=== PATIENT | female | born 1980 | race Caucasian/White ===

== ENCOUNTER 2017-09-20 17:57 | Emergency (ER) | payer SELFPAY ==
--- NOTE | 2017-09-20 18:52 | ER Document Report ---
ED Medical Screen (RME) - General Chief Complaint: Vertigo Stated Complaint: LEG PAIN, DIZZY Time Seen by Provider: 09/20/17 18:39 Notes: RME DISCLOSURE I have seen this patient as part of a Rapid Medical Evaluation and, if applicable, placed any initially appropriate orders. The patient will be seen and fully evaluated, including a full history and physical exam, by a provider ( in Main ED or Fast Track) when a room becomes available. 37-year-old female here with complaints of lightheadedness/SOB that started yesterday evening with associated episode of vomiting. Lightheadedness shortness of breath persisted throughout the day and worsened however she did not syncopized. She then started to have right leg severe pain numbness and tingling but no swelling. She has not had any chest pain tightness discomfort. She has no prior history of DVT/PE but has a strong family history in the father who has had multiple blood clots. She does also take exogenous estrogen since she is status post hysterectomy. She was sent here today from [facility] who was concerned. They performed orthostatic vital signs there and she had hypoxia to 90%. TRAVEL OUTSIDE OF THE [place] IN LAST 30 DAYS: No - Related Data Allergies/Adverse Reactions: Penicillins Allergy (Severe, Verified 09/20/17 18:00) Hives tegaderm Adverse Reaction (Uncoded 08/29/13 10:45) arm swelling Past Medical History Pulmonary Medical History: Reports: Hx Asthma - hx of no current meds Neurological Medical History: Reports: Hx Migraine Endocrine Medical History: Reports: Hx Hypothyroidism Malignancy Medical History: Reports: Hx Breast Cancer - chemo GI Medical History: Reports: Hx Gastroesophageal Reflux Disease Skin Medical History: Reports Hx Eczema Psychiatric Medical History: Reports: Hx Depression Past Surgical History: Reports: Hx Appendectomy, Hx Section - 3, Hx Hysterectomy, Hx Oral Surgery, Hx Tonsillectomy, Hx Tubal Ligation - x2 - Immunizations Immunizations up to date: No Hx Diphtheria, Pertussis, Tetanus Vaccination: No Physical Exam - Vital signs Vitals: Temp Pulse Resp BP Pulse Ox 97.5 F 95 20 125/88 H 99 09/20/17 18:04 09/20/17 18:04 09/20/17 18:04 09/20/17 18:04 09/20/17 18:04 Course - Vital Signs Vital signs: Temp Pulse Resp BP Pulse Ox 97.5 F 95 20 125/88 H 99 09/20/17 18:04 09/20/17 18:04 09/20/17 18:04 09/20/17 18:04 09/20/17 18:04
[2017-09-20 19:46] LABS: ABSOLUTE LYMPHOCYTES (AUTO) 1.9 10^3/uL (0.5-4.7); ABSOLUTE MONOCYTES (AUTO) 0.5 10^3/uL (0.1-1.4); ABSOLUTE NEUT (AUTO) 5.7 10^3/uL (1.7-8.2); BASOPHILS % (AUTO) 0.4 % (0-2); EOSINOPHILS % (AUTO) 0.5 % (0-6); HEMATOCRIT 42.9 % (36.0-47.0); HEMOGLOBIN 14.9 g/dL (12.0-15.5); LYMPHOCYTES % (AUTO) 23.8 % (13-45); MEAN CORPUSCULAR HEMOGLOBIN 32.7 pg (27.0-33.4); MEAN CORPUSCULAR HGB CONC 34.8 g/dL (32.0-36.0); MEAN CORPUSCULAR VOLUME 94 fl (80-97); MONOCYTES % (AUTO) 5.5 % (3-13); PLATELET COUNT 210 10^3/uL (150-450); RED BLOOD COUNT 4.57 10^6/uL (3.72-5.28); RED CELL DISTRIBUTION WIDTH 12.6 % (11.5-14.0); SEGMENTED NEUTROPHILS % (AUTO) 69.8 % (42-78); TOTAL CELLS COUNTED % (AUTO) 100 %; WHITE BLOOD COUNT 8.1 10^3/uL (4.0-10.5)
--- NOTE | 2017-09-20 20:15 | RADIOLOGY REPORT (SQ) ---
EXAM DESCRIPTION: CTA CHEST COMPLETED DATE/TIME: 09/20/2017 8:01 pm REASON FOR STUDY: SOB lightheaded, on estrogen, hypoxia; eval PE COMPARISON: None. TECHNIQUE: CT scan of the chest performed using helical scanning technique with dynamic intravenous contrast injection. Images reviewed with lung, soft tissue and bone windows. Reconstructed coronal and sagittal MPR images reviewed. Additional 3 dimensional post-processing performed to develop Maximal Intensity Projection images (CT P). All images stored on PACS. All CT scanners at this facility use dose modulation, iterative reconstruction, and/or weight based d osing when appropriate to reduce radiation dose to as low as reasonably achievable (ALARA). [facility]: Dose Right [facility]: CareDose [facility]: Dose Right [facility]: Teradose 4D [facility]: [employer] CONTRAST TYPE AND DOSE: contrast/concentration: Isovue 370.00 mg/ml; Total Contrast Delivered: 55.0 ml; Total Saline Delivered: 50.1 ml Contrast bolus adequate for pulmonary arteries and aorta. RENAL FUNCTION: None required. The patient is less than 50 years old. RADIATION DOSE: CT Rad equipment meets quality standard of care and radiation dose reduction techniq ues were employed. CTDIvol: 9.9 - 14.3 mGy. DLP: 505 mGy-cm. . LIMITATIONS: None. FINDINGS: LUNGS AND PLEURA: No masses, infiltrates, pneumothorax. No pleural effusions, calcificati ons. AORTA AND GREAT VESSELS: No aneurysm. No dissection. HEART: No pericardial effusion. No significant coronary artery calcifications. PULMONARY ARTERIES: No emboli visualized in the main pulmonary arteries or the segmental branches. HILAR AND MEDIASTINAL STRUCTURES: No identified masses or abnormal nodes. HARDWARE: None in the chest. UPPER ABDOMEN: No significant findings. Limited exam. THYROID AND OTHER SOFT TISSUES: No masses. No adenopathy. BONES: No acute or significant finding. 3D MIPS: Confirm above findings. OTHER: No other significant finding. IMPRESSION: NORMAL CTA OF THE CHEST. NO PULMONARY EMBOLI. COMMENT: Quality ID # [id number]: Final reports with documentation of one or more dose reduction techniques (e.g., Automated exposure control, adjustment of the mA and/or kV according to patient size, use of iterative reconstruction technique) TECHNICAL DOCUMENTATION: JOB ID: [id number] [employer]- All Rights Reserved Reading location - IP/workstation name: [email or web address]
[2017-09-20 20:18] LABS: ALANINE AMINOTRANSFERASE 23 U/L (9-52); ALBUMIN 4.4 g/dL (3.5-5.0); ALKALINE PHOSPHATASE 58 U/L (38-126); ANION GAP 6 (5-19); ASPARTATE AMINO TRANSFERASE 21 U/L (14-36); BILIRUBIN,DIRECT 0.3 mg/dL (0.0-0.4); BILIRUBIN,TOTAL 0.4 mg/dL (0.2-1.3); BLOOD UREA NITROGEN 9 mg/dL (7-20); CALCIUM 9.7 mg/dL (8.4-10.2); CARBON DIOXIDE 30 mmol/L (22-30); CHLORIDE 106 mmol/L (98-107); GLUCOSE 87 mg/dL (75-110); POTASSIUM 4.7 mmol/L (3.6-5.0); SODIUM 142.3 mmol/L (137-145); TOTAL PROTEIN 7.1 g/dL (6.3-8.2)
[2017-09-20] MEDS ORDERED: NORMAL SALINE 1000 ML 1,000 ML IV ONE (20:31)
--- NOTE | 2017-09-20 20:33 | ER Document Report ---
ED General - General Chief Complaint: Vertigo Stated Complaint: LEG PAIN, DIZZY Time Seen by Provider: 09/20/17 18:39 Notes: Patient is a 37-year-old female that comes emergency department for chief complaint of getting lightheaded when she sits up or stands up and intermittent shortness of breath, she states symptoms started yesterday, she states that she suddenly felt nauseated and vomited once yesterday but has not felt that again today. She ate a banana and had coffee and has otherwise not eaten today. She also states that she gets tingling and sharp pains in her right leg around her right calf but does not have swelling in the leg. She denies prior history of DVT or PE but she does have family history of this. She is on estrogen supplement since she is status post hysterectomy and she smokes. She was sent over by her primary care provider, reportedly they performed orthostatics vital signs and she had hypoxia down to 90%. Past medical history otherwise includes asthma, hypothyroidism, breast cancer which she completed chemotherapy for and has been cleared over 10 years ago. TRAVEL OUTSIDE OF THE [place] IN LAST 30 DAYS: No - Related Data Allergies/Adverse Reactions: Penicillins Allergy (Severe, Verified 09/20/17 18:00) Hives tegaderm Adverse Reaction (Uncoded 08/29/13 10:45) arm swelling Past Medical History - General Information source: Patient - Social History Smoking Status: Current Every Day Smoker Chew tobacco use (# tins/day): No Frequency of alcohol use: None Drug Abuse: None Lives with: Family Family History: Arthritis, CAD, CVA, DM, Hyperlipidemia, Hypertension, Malignancy, Thyroid Disfunction Patient has suicidal ideation: No Patient has homicidal ideation: No Pulmonary Medical History: Reports: Hx Asthma - hx of no current meds Neurological Medical History: Reports: Hx Migraine Endocrine Medical History: Reports: Hx Hypothyroidism Renal/ Medical History: Denies: Hx Peritoneal Dialysis Malignancy Medical History: Reports: Hx Breast Cancer - chemo GI Medical History: Reports: Hx Gastroesophageal Reflux Disease Skin Medical History: Reports Hx Eczema Psychiatric Medical History: Reports: Hx Depression Past Surgical History: Reports: Hx Appendectomy, Hx Section - 3, Hx Hysterectomy, Hx Oral Surgery, Hx Tonsillectomy, Hx Tubal Ligation - x2 - Immunizations Immunizations up to date: No Hx Diphtheria, Pertussis, Tetanus Vaccination: No Review of Systems - Review of Systems Constitutional: No symptoms reported EENT: No symptoms reported Cardiovascular: See HPI Respiratory: No symptoms reported Gastrointestinal: No symptoms reported Genitourinary: No symptoms reported Female Genitourinary: No symptoms reported Musculoskeletal: See HPI Skin: No symptoms reported Hematologic/Lymphatic: See HPI Neurological/Psychological: See HPI Physical Exam - Vital signs Vitals: Temp Pulse Resp BP Pulse Ox 97.5 F 95 20 125/88 H 99 09/20/17 18:04 09/20/17 18:04 09/20/17 18:04 09/20/17 18:04 09/20/17 18:04 Interpretation: Normal - General General appearance: Appears well, Alert - HEENT Head: Normocephalic, Atraumatic Eyes: Normal Pupils: PERRL - Respiratory Respiratory status: No respiratory distress Chest status: Nontender Breath sounds: Normal Chest palpation: Normal - Cardiovascular Rhythm: Regular Heart sounds: Normal auscultation Murmur: No - Abdominal Inspection: Normal Distension: No distension Bowel sounds: Normal Tenderness: Nontender Organomegaly: No organomegaly - Back Back: Normal, Nontender - Extremities General upper extremity: Normal inspection, Nontender, Normal strength, Normal temperature General lower extremity: Other - Patient complains with palpation of the right calf area, however this area is not erythematous or hot to the touch, not swollen, normal distal neurovascular exam, no obvious abnormality of the lower extremity bilaterally - Neurological Neuro grossly intact: Yes Cognition: Normal Orientation: AAOx4 [place] Coma Scale Eye Opening: Spontaneous [place] Coma Scale Verbal: Oriented [place] Coma Scale Motor: Obeys Commands [place] Coma Scale Total: 15 Speech: Normal Motor strength normal: LUE, RUE, LLE, RLE Sensory: Normal - Psychological Associated symptoms: Normal affect, Normal mood - Skin Skin Temperature: Warm Skin Moisture: Dry Skin Color: Normal Course - Re-evaluation Re-evalutation: Blood pressure is borderline low, however patient is only 47 kg. She was given IV fluid bolus. Orthostatic vital signs are unremarkable. Blood pressure is not in hypotensive range after IV fluids. EKG unremarkable, troponin unremarkable, CBC, chemistry unremarkable. She is on Nexium for Doppler ultrasound negative for clot, CTA from triage was reviewed and shows no pulmonary embolism or acute abnormality. Patient smiling and well-appearing with clear lungs and no signs of distress. She is not tachycardic. No fever. She is asymptomatic on my reexamination. Discussed workup, smoking cessation, recommendations, follow-up, return precautions in detail. Patient states satisfaction and agreement. - Vital Signs Vital signs: Temp Pulse Resp BP Pulse Ox 97.5 F 59 L 20 101/76 100 09/20/17 18:04 09/20/17 21:57 09/20/17 23:01 09/20/17 23:00 09/20/17 23:01 - Laboratory Result Diagrams: 09/20/17 19:20 09/20/17 19:20 Discharge - Discharge Clinical Impression: Near syncope Condition: Stable Disposition: HOME, SELF-CARE Additional Instructions: Your blood pressure is borderline low, but otherwise your evaluation is unremarkable. Your CAT scan of the chest, ultrasound of the leg, and general workup did not show any concerning findings including no blood clots, anemia, or electrolyte derangement. The pain in your leg appears to be a muscular source, apply heat, take [id number] anti-inflammatories, massage the muscle. This should resolve with time. Follow-up with primary care for additional evaluation and management. Stop smoking. Return if you worsen including passing out, vomiting, chest pain, difficulty breathing, swelling of the leg, or any other concerning or worsening symptoms. Forms: Return to Work
--- NOTE | 2017-09-20 21:36 | RADIOLOGY REPORT (SQ) ---
EXAM DESCRIPTION: VENOUS UNILATERAL LOWER COMPLETED DATE/TIME: 09/20/2017 9:28 pm REASON FOR STUDY: R leg numb tingling; eval DVT COMPARISON: None. TECHNIQUE: Dynamic and static haider scale and color images acquired of the right leg venous system. S elected spectral images acquired with additional compression and augmentation maneuvers. The contrala teral common femoral vein and saphenofemoral junction were also imaged. Images stored on PACS. LIMITATIONS: None. FINDINGS: COMMON FEMORAL: Normal phasicity, compression and augmentation. No visualized echogenic ma terial on haider scale. No defects on color images. FEMORAL: Normal compression and augmentation. No visualized echogenic material on haider scale. No defe cts on color images. POPLITEAL: Normal compression, augmentation. No visualized echogenic material on haider scale. No defec ts on color images. CALF VESSELS: Normal compression, augmentation. No visualized echogenic material on haider scale. No de fects on color images. GSV and SSV: Normal compression, augmentation. No visualized echogenic material on haider scale. No def ects on color images. ANY DEEP VENOUS INSUFFICIENCY: Not evaluated. ANY EVIDENCE OF POPLITEAL CYST: No. OTHER: No other significant finding. CONTRALATERAL COMMON FEMORAL VEIN AND SAPHENOFEMORAL JUNCTION: Normal phasicity, compression and augmentation. No visualized echogenic material on haider scale. No de fects on color images. IMPRESSION: NO EVIDENCE OF DVT OR SVT IN THE RIGHT LEG. TECHNICAL DOCUMENTATION: JOB ID: [id number] [email or web address]- All Rights Reserved Reading location - IP/workstation name: [email or web address]
[2017-09-20 23:06] VITALS: BP 101/76
--- NOTE | 2017-09-21 07:58 | EKG REPORT ---
SEVERITY:- NORMAL ECG - SINUS RHYTHM : Confirmed by: Abe Cabrera MD 21-Sep-2017 07:57:45
== END 2017-09-20 23:07 | disposition home or self-care (01) ==
LOC: ER 17:57
DX: R55 Syncope and collapse (principal); R20.2 Paresthesia of skin; M79.661 Pain in right lower leg; J45.909 Unspecified asthma, uncomplicated; R06.02 Shortness of breath; F17.200 Nicotine dependence, unspecified, uncomplicated; Z90.710 Acquired absence of both cervix and uterus; Z79.890 Hormone replacement therapy; Z82.49 Family history of ischemic heart disease and other diseases of the circulatory system; Z85.3 Personal history of malignant neoplasm of breast; Z92.21 Personal history of antineoplastic chemotherapy; Z88.0 Allergy status to penicillin
CPT/HCPCS: 93005; 99284; 96360; 36415; 85025; 81025; 80053; 84484; 93971; 71275; 93010; J7030